=== PATIENT | male | born 1930 | race Hispanic/Latino ===

== ENCOUNTER → 2017-04-12 | Outpatient (CLI) | payer MEDICARE ==
[~2017-04-12] MED LIST: ADVAIR 100-501 EACH INH; ADVAIR 250-501 EACH INH; ALPHAGAN P5 ML OU; AMLODIPINE BESYL5 MG PO; ATROVENT 0.02%2.5 ML INH; CENTRAVITES 501 EACH; COMBIGAN 0.2% IO; COMBIGAN EYE DRO5 ML OU; COREG6.25 MG PO; DALIRESP500 MCG PO; DUONEB 0.5 MG-33 ML INH; FISH OIL OMEGA1 EACH; FLONASE INH; GEMFIBROZIL600 MG PO; IPRATROPIU0.2 MG/1 M NEB; LEVOTHYROXINE50 MCG PO; LORATADINE10 M2 PO; LORTAB 5-500 T1 EACH PO; LOSARTAN POTAS100 MG PO; LUMIGA IO; MECLIZINE HCL12.5 MG PO; METOPROLOL TART25 MG PO; MONTELUKAST SOD10 MG PO; NITROGLYCERIN0.4 MG SL; OMEPRAZOLE40 MG PO; PREDNISONE10 MG PO; PREDNISONE20 MG PO; PROAIR HFA8.5 G1; PROVENTIL 0.083%3 ML INH; RESTASIS1 EACH; RESTASIS1 EACH OU; SPIRIVA HANDIH18 MCG INH; SPIRIVA18 MCG INH; THEO-24300 MG PO; THEODUR200 MG PO; THEOPHYLLINE A200 MG PO; TIMOPTIC 0.5%1 EACH OU; Z.0.ADVAIR 100-501 E IH; Z.0.DALIRESP500 MCG PO; Z.0.GEMFIBROZIL600 M; Z.0.IPRATROPIU0.2 MG INH; Z.0.LEVOTHROID50 MCG; Z.0.LEVOTHYROXINE50 PO; Z.0.LOPRESSOR25 MG; Z.0.METOPROLOL TART2 PO; Z.0.RESTASIS1 EACH OU; Z.0.SINGULAIR10 MG PO; [UNRECOGNIZED DRUG - CODE] TOP; [UNRECOGNIZED DRUG - OTHER] TOP
--- NOTE | 2017-04-12 09:15 | Diagnostic Imaging Report ---
PROCEDURE: CT CHEST WITHOUT CONTRAST CT scan of the chest WITHOUT intravenous contrast, using standard protocol. TECHNIQUE: The chest was scanned utilizing a multidetector helical scanner from the apex to the level of the adrenal glands. No IV contrast was administered because of referring physician request. Coronal and sagittal multiplanar reformations were obtained. COMPARISON: CT chest with contrast 03/23/2014. INDICATIONS: CHEST PAIN FINDINGS: Lines/tubes: None. Lungs and Airways: Coarse reticular opacities with cystic changes in the left costophrenic sulcus and along the periphery of the right and left lower lobes, progressed relative to 03/23/2014. Left lower lobe collapse has resolved. Clustered tree in bud nodular opacities laterally within the right upper lobe seen on series 3 image 62. 5 mm groundglass nodule within the superior segment of the right lower lobe is unchanged dating to 03/23/2014. No bronchiectasis. Peribronchial thickening is again noted. Pleura: The pleural spaces are clear. Heart and mediastinum: Visualized portions of the thyroid gland are unremarkable. No ectasia or aneurysmal dilatation of the thoracic aorta. Coronary artery and aortic annular calcifications. No pericardial effusion. No axillary, hilar, or mediastinal lymphadenopathy. Soft tissues: No focal soft tissue abnormalities. Abdomen: Visualized portions of the liver, spleen, and pancreas are unremarkable. Subcentimeter bilateral renal hypoattenuating lesions, too small to further characterize. Bones: No acute osseous abnormalities. Multilevel degenerative disc changes of the thoracic spine. IMPRESSION: Mild bibasilar fibrotic changes, likely age-related.. Tree in bud nodules within the right upper lobe are nonspecific though suggestive of atypical infection. No consolidative pneumonia. Atherosclerotic vascular disease. Dictated by: Bernardo Rincon M.D. on 04/12/2017 at 9:14 Electronically approved by: Bernardo Rincon M.D. on 04/12/2017 at 9:14
== END ==
LOC: CT 07:44
PROVIDERS: ATTEND Internal Medicine Pulmonary Disease
DX: J98.4 Other disorders of lung (principal)
CPT/HCPCS: 71250

== ENCOUNTER → 2017-05-03 | Emergency (ER) | payer OTHER ==
[~2017-05-03] VITALS: Ht 167.6 cm; Wt 66.7 kg
--- OUTSIDE RECORDS SUMMARY | 2017-05-03 09:09 | XMS REPORT ---
Author Author [facility] Address Unknown Phone Unavailable Care Team Providers Care [employer] Name Role Phone DENNIS BRANDT Unavailable Unavailable Problems This patient has no known problems. Allergies, Adverse Reactions, Alerts This patient has no known allergies or adverse reactions. Medications This patient has no known medications. Results Test Description Test Time Test Comments Text Results Atomic Results Result Comments CT CHEST WO [place] [address] Patient Name: DYANA GARCIA MR #: [id number] : 1930 Age/Sex: 87/M Req #: [id number] Adm Physician: Ordered by: DENNIS BRANDT MD Report #: [id number] Location: CT Room/Bed: Procedure: [id number] CT/CT CHEST WO Exam Date: 04/12/17 Exam Time: 0820 REPORT STATUS: Signed PROCEDURE: CT CHEST WITHOUT CONTRAST CT scan of the chest WITHOUT intravenous contrast, using standard protocol. TECHNIQUE: The chest was scanned utilizing a multidetector helical scanner from the apex to the level of the adrenal glands. No IV contrast was administered because of referring physician request. Coronal and sagittal multiplanar reformations were obtained. COMPARISON: CT chest with contrast 03/23/2014. INDICATIONS: CHEST PAIN FINDINGS: Lines/ tubes: None. Lungs and Airways: Coarse reticular opacities with cystic changes in the left costophrenic sulcus and along the periphery of the right and left lower lobes, progressed relative to 03/23/2014. Left lower lobe collapse has resolved. Clustered tree in bud nodular opacities laterally within the right upper lobe seen on series 3 image 62. 5 mm groundglass nodule within the superior segment of the right lower lobe is unchanged dating to 03/23/2014. No bronchiectasis. Peribronchial thickening is again noted. Pleura: The pleural spaces are clear. Heart and mediastinum: Visualized portions of the thyroid gland are unremarkable. No ectasia or aneurysmal dilatation of the thoracic aorta. Coronary artery and aortic annular calcifications. No pericardial effusion. No axillary, hilar, or mediastinal lymphadenopathy. Soft tissues: No focal soft tissue abnormalities. Abdomen: Visualized portions of the liver, spleen, and pancreas are unremarkable. Subcentimeter bilateral renal hypoattenuating lesions, too small to further characterize. Bones: No acute osseous abnormalities. Multilevel degenerative disc changes of the thoracic spine. IMPRESSION: Mild bibasilar fibrotic changes, likely age-related.. Tree in bud nodules within the right upper lobe are nonspecific though suggestive of atypical infection. No consolidative pneumonia. Atherosclerotic vascular disease. Dictated by: Slava Hassan M.D. on at 9:14 Electronically approved by: Slava Hassan M.D. on 2017 at 9:14 Dictated By: SLAVA HASSAN MD 3 Transcribed By: BROOKLYNN on 04/12/17913 COPY TO: DENNIS BRANDT MD
--- NOTE | 2017-05-03 10:18 | Diagnostic Imaging Report ---
PROCEDURE:HIPS BILAT 3-4VWS (+/- PELVIS) INDICATION:Fall, bilateral hip pain COMPARISON:None. FINDINGS: No acute, displaced fracture or dislocation. Femoral heads project appropriately over the acetabula. Symmetric moderate joint space narrowing with subchondral cystic changes and marginal osteophytosis. Symphysis pubis and sacroiliac joints are intact. The sacrum is obscured by rectal gas and stool. CONCLUSION: No acute osseous abnormalities. 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 Dictated by: Bernardo Rincon M.D. on 05/03/2017 at 10:18 Electronically approved by: Bernardo Rincon M.D. on 05/03/2017 at 10:18
--- NOTE | 2017-05-03 10:22 | Diagnostic Imaging Report ---
PROCEDURE:X-RAY LUMBAR SPINE, TWO VIEWS COMPARISON:CT abdomen and pelvis 09/06/2016.. INDICATIONS:FALL, LOWER BACK PAIN FINDINGS: There are 5 nonrib-bearing lumbar-type vertebral bodies. There is a mild age-indeterminate anterior compression deformity of L1 which was not present on the comparison CT from August 2016.. Multilevel degenerative disc changes manifest by disc space narrowing, marginal osteophytosis, and endplate sclerosis. Bilateral facet arthropathy at L4-5 and L5-S1 With mild degenerative anterolisthesis of L4 over L5. Sacroiliac joints are intact. Sacral foramina appear intact superiorly. Inferiorly, the sacral body and coccyx are obscured by rectal gas and stool.. CONCLUSION: Mild age indeterminate anterior compression deformity of L1. Correlate for point tenderness. Multilevel degenerative disc changes and facet arthropathy of the lumbar spine Dictated by: Bernardo Rincon M.D. on 05/03/2017 at 10:21 Electronically approved by: Bernardo Rincon M.D. on 05/03/2017 at 10:21
--- NOTE | 2017-05-03 10:27 | Diagnostic Imaging Report ---
Exams: Head and cervical spine CTs without IV contrast trauma, fall History: Fall, pain Comparison studies: Head CT of 07/24/2016. Technique: Axial images were obtained from the brain and cervical spine. Coronal and sagittal images reconstructed from the axial data. Intravenous contrast: None Findings: Head CT: Scalp: No abnormalities. Bones: No fractures, blastic or lytic lesions. Extra-axial spaces: No masses. No fluid collections. Brain sulci: Mildly prominent. Ventricles: Mild compensatory dilatation. No hydrocephalus. Parenchyma: No mass, acute hemorrhage or acute cortical vascular insults. Ill-defined confluent hypodensities in the supratentorial white matter are nonspecific but most compatible with chronic small vessel ischemic changes. Small chronic lacunar insult in the left cerebellum is unchanged. Sellar/suprasellar region: No abnormalities. Craniocervical junction: The foramen magnum is patent. No Chiari one malformation. Incidental findings: Atherosclerotic calcifications in the carotid siphons and intradural vertebral arteries.. Bilateral lens replacements related to previous cataract surgery. Cervical spine CT: Fractures: None. Soft tissues: No gross abnormalities. Atlantoaxial articulation: Intact. Alignment: Normal lordosis. No scoliosis. Cervicomedullary junction: No abnormalities. The foramen magnum is patent. Vertebrae: No infection or neoplasm. Degenerative changes: Severely degenerated disc at C4-C5. Moderately degenerated disks at C5-C6 and at C6-C7. Moderate canal stenosis at C4-C5 and at C5-C6 due to disc osteophyte complexes. Multilevel advanced facet arthrosis. Mild widening of the superior degenerated left C3-C4 facet which may reflect joint effusion and changes of synovitis. Multilevel foraminal stenosis due to uncovertebral and facet arthrosis (mild on the right at C2-C3 and moderate bilaterally from C3-C4 to C6-C7). Incidental findings: Atherosclerotic calcifications in the cervical carotid bulbs.. IMPRESSION: Head CT: 1. No acute abnormalities. 2. No significant changes from the previous head CT of 07/24/2013. 3. Mild generalized volume loss with moderate chronic microvascular ischemic changes. Cervical spine CT: 1. No cervical spine fracture or acute subluxation. 2. Advanced multilevel degenerative changes as described. 3. Cannot adequately evaluate ligament, spinal cord and or vascular abnormalities on the basis of this examination. Signed by: Dr. Bernardo Mensha M.D. on 05/03/2017 10:23 AM
== END | disposition home or self-care (01) ==
LOC: ER 09:06
DX: S00.83XA Contusion of other part of head, initial encounter (principal); S32.010A Wedge compression fracture of first lumbar vertebra, initial encounter for closed fracture; W01.198A Fall on same level from slipping, tripping and stumbling with subsequent striking against other object, initial encounter; Y92.008 Other place in unspecified non-institutional (private) residence as the place of occurrence of the external cause; I10 Essential (primary) hypertension; F03.90 Unspecified dementia, unspecified severity, without behavioral disturbance, psychotic disturbance, mood disturbance, and anxiety; E03.9 Hypothyroidism, unspecified; J44.9 Chronic obstructive pulmonary disease, unspecified; I25.2 Old myocardial infarction
CPT/HCPCS: 70450; 72100; 72125; 73522; 99284

== ENCOUNTER → 2017-10-02 | Outpatient (CLI) | payer MEDICARE, OTHER ==
--- NOTE | 2017-10-02 10:21 | Diagnostic Imaging Report ---
PROCEDURE: Frontal and lateral views of the chest. COMPARISON: CT Chest 04/12/2017. INDICATIONS: OTHER DISORDERS OF LUNG FINDINGS: Lines/tubes: None. Lungs: The lungs are moderately inflated. No evidence of pneumonia or pulmonary edema. Opacities at the bilateral costophrenic angles, corresponding to fibrotic changes / scarring on prior CT on 04/12/17. Pleura: There is no pleural effusion or pneumothorax. Heart and mediastinum: The cardiomediastinal silhouette is unremarkable. Bones: No acute bony abnormality. IMPRESSION: No acute cardiopulmonary disease. Dictated by: SHANE RIVAS M.D. on 10/02/2017 at 9:35 Electronically approved by: SHANE RIVAS M.D. on 10/02/2017 at 9:35
== END ==
LOC: RAD 08:38
PROVIDERS: ATTEND Internal Medicine Pulmonary Disease
DX: J98.4 Other disorders of lung (principal)
CPT/HCPCS: 71046

== ENCOUNTER 2017-11-23 15:00 | Inpatient (IN) | payer MEDICARE, OTHER ==
[~2017-11-23] VITALS: Ht 172.7 cm; Wt 57.6 kg
[2017-11-23] MEDS ORDERED: AZITHROMYCIN 500MG/NS 250 ML 250 ML IV STA (15:21)
[2017-11-23] MEDS ORDERED: ALBUTEROL SULF 0.083% NEB SOLN 3 ML NEB NEB ONE ×2 (15:21→19:53)
[2017-11-23] MEDS ORDERED: IPRATROPIUM BROMIDE 0.02% 2.5 ML NEB NEB ONE ×2 (15:30→20:00)
[2017-11-23] MEDS ORDERED: ASPIRIN 81 MG CHEW TAB PO ONE (15:30)
[2017-11-23] MEDS ORDERED: METHYLPREDNISOLONE SOD SUCC 125 MG/2ML VIAL IV ONE (15:30)
--- NOTE | 2017-11-23 16:34 | Diagnostic Imaging Report ---
EXAMINATION: PA and lateral views of the chest. COMPARISON: None CLINICAL HISTORY: None available DISCUSSION: The lungs are well-inflated. No focal airspace consolidation or pneumothorax. Blunting of the bilateral posterior costophrenic sulci compatible with trace effusions. Atherosclerotic calcification of the thoracic aorta with otherwise normal cardiomediastinal contour. Mild prominence of the pulmonary interstitium. Probable calcified granuloma right upper lung. No acute osseous abnormality. IMPRESSION: Pulmonary venous congestion with trace bilateral pleural effusions. Signed by: Dr. Bernardo Rincon M.D. on 11/23/2017 4:31 PM
[2017-11-23 16:45] LABS: CLARITY,URINE CLEAR (CLEAR); COLOR,URINE YELLOW (YELLOW); LEUKOCYTE ESTERASE ,URINE NEGATIVE (NEGATIVE); NITRITE,URINE NEGATIVE (NEGATIVE); PROTEIN,URINE DIPSTICK 2+ (NEGATIVE)
[2017-11-23 16:46] LABS: BILIRUBIN,URINE NEGATIVE (NEGATIVE); KETONES,URINE NEGATIVE (NEGATIVE); URINE UROBILINOGEN 0.2 mg/dL (0.2 - 1)
[2017-11-23 17:05] LABS: BACTERIA,URINE RARE /HPF; EPITHELIAL CELLS,URINE RARE /LPF; RBC,URINE 0-5 /HPF (0-5); WBC,URINE (MAN) 0-5 /HPF (0-5)
[2017-11-23] MEDS: CEFTRIAXONE SOD 1 GM VIAL IV SCH (17:09)
[2017-11-23 17:16] LABS: BASOPHILS # (AUTO) 0.1 (0.0-0.1); BASOPHILS % 1.7 % (0.0-1.0); EOSINOPHILS # (AUTO) 0.8 (0.0-0.4); EOSINOPHILS % 16.9 % (0.0-6.0); HEMATOCRIT 37.8 % (38.2-49.6); HEMOGLOBIN 11.9 g/dL (14.0-18.0); LYMPHOCYTES % 21.8 % (18.0-39.1); MEAN CORPUSCULAR HEMOGLOBIN 29.9 pg (28-32); MEAN CORPUSCULAR HGB CONC 31.5 g/dL (31-35); MONOCYTES # (AUTO) 0.5 (0.2-0.8); MONOCYTES % 10.1 % (4.4-11.3); NEUTROPHILS # (AUTO) 2.3 (2.1-6.9); NEUTROPHILS % 49.3 % (38.7-80.0); PLATELET COUNT 217 x10e3/uL (140-360); RED BLOOD COUNT 3.98 x10e6/uL (4.3-5.7); RED CELL DISTRIBUTION WIDTH 12.9 % (11.7-14.4)
[2017-11-23 17:25] LABS: INR 0.98; PROTHROMBIN TIME 13.9 seconds (11.9-14.5)
[2017-11-23 17:26] LABS: PARTIAL THROMBOPLASTIN TIME 31.6 seconds (23.8-35.5)
[2017-11-23 17:33] LABS: ALBUMIN 3.3 g/dL (3.5-5.0); ALBUMIN/GLOBULIN RATIO 0.8 (0.8-2.0); ANION GAP 16.9 mmol/L (8-16); CREATININE, SERUM 2.55 mg/dL (0.72-1.25); MAGNESIUM 2.5 MG/DL (1.3-2.1)
[2017-11-23 17:36] LABS: POTASSIUM 5.9 mmol/L (3.5-5.1)
[2017-11-23 17:47] LABS: B-TYPE NATRIURETIC PEPTIDE2 139.3 pg/mL (0-100)
[2017-11-23 17:52] LABS: CREATINE KINASE MB 4.3 ng/mL (0-5.0); THYROID STIMULATING HORMONE 19.681 uIU/mL (0.350-4.940)
[2017-11-23] MEDS ORDERED: CALCIUM GLUCONATE 10% INJ 4.65 MEQ in SODIUM CHLORIDE 0.9% 50ML 50 ML IV ONE (18:00)
[2017-11-23] MEDS ORDERED: SOD POLYSTYRENE SULFONATE SUSP 15 GM/60 ML BTL PO ONE (18:15)
[2017-11-23] MEDS ORDERED: INSULIN REGULAR, HUMAN 100 UNIT/1 ML 3ML VIAL IV ONE (18:15)
[2017-11-23] MEDS ORDERED: DEXTROSE 50% SYRINGE 50 ML IV ONE (18:15)
[2017-11-23] MEDS ORDERED: FUROSEMIDE INJ 10 MG/ML 4 ML VIAL IV ONE (19:30)
[2017-11-23] MEDS: SODIUM CHLORIDE 0.9% 1000ML 1,000 ML IV SCH (21:21)
[2017-11-23 23:15] VITALS: BP 141/75
[2017-11-24] VITALS (7 sets, daily range): BP systolic 120–151; BP diastolic 67–75
[2017-11-24 00:54] LABS: CREATINE KINASE MB 4.5 ng/mL (0-5.0)
[2017-11-24] MEDS: SODIUM CHLORIDE 0.9% 1000ML 1,000 ML IV SCH (08:50)
[2017-11-24 09:01] LABS: CREATINE KINASE MB 4.7 ng/mL (0-5.0)
[2017-11-24] MEDS ORDERED: MILK OF MA2400 MG/10 PO (09:44)
[2017-11-24 10:11] LABS: BASOPHILS % 0.3 % (0.0-1.0); HEMATOCRIT 38.7 % (38.2-49.6); HEMOGLOBIN 11.7 g/dL (14.0-18.0); LYMPHOCYTES # (AUTO) 0.2 (1.0-3.2); LYMPHOCYTES % 6.6 % (18.0-39.1); MEAN CORPUSCULAR HEMOGLOBIN 29.8 pg (28-32); MEAN CORPUSCULAR HGB CONC 30.2 g/dL (31-35); MEAN CORPUSCULAR VOLUME 98.5 fL (81-99); MONOCYTES # (AUTO) 0.1 (0.2-0.8); MONOCYTES % 1.6 % (4.4-11.3); NEUTROPHILS # (AUTO) 3.3 (2.1-6.9); NEUTROPHILS % 91.2 % (38.7-80.0); PLATELET COUNT 216 x10e3/uL (140-360); RED BLOOD COUNT 3.93 x10e6/uL (4.3-5.7); RED CELL DISTRIBUTION WIDTH 13.1 % (11.7-14.4)
[2017-11-24 10:20] LABS: ANION GAP 19.5 mmol/L (8-16); CALCIUM 8.6 mg/dL (8.4-10.2); CREATININE, SERUM 2.51 mg/dL (0.72-1.25); MAGNESIUM 2.3 MG/DL (1.3-2.1); POTASSIUM 5.5 mmol/L (3.5-5.1)
[2017-11-24] MEDS ORDERED: MAGNESIUM HYDROXIDE 30 ML UDC PO PRN (10:30)
[2017-11-24] MEDS ORDERED: ACETAMINOPHEN 325 MG TAB PO PRN (10:45)
[2017-11-24] MEDS ORDERED: HYDRALAZINE HCL 20 MG/ML VIAL IV PRN (10:45)
[2017-11-24] MEDS ORDERED: ONDANSETRON HCL INJ 2 MG/ML VIAL IV PRN (10:45)
[2017-11-24] MEDS: AZITHROMYCIN 500MG/NS 250 ML 250 ML IV SCH (10:52)
[2017-11-24] MEDS: GUAIFENESIN 600MG/DEXTROMETHORPHAN 30MG TABSR PO SCH ×2 (10:52→17:34)
[2017-11-24] MEDS ORDERED: LACTULOSE SYRUP 20 GM/30 ML UDC PO NR (11:00)
[2017-11-24] MEDS: SALMETEROL/FLUTICASONE 100/50 INH SCH ×2 (11:30→20:35)
[2017-11-24] MEDS: PANTOPRAZOLE SOD 40 MG TABEC PO SCH (12:34)
[2017-11-24] MEDS ORDERED: FUROSEMIDE INJ 10 MG/ML 4 ML VIAL IV NR (13:00)
[2017-11-24 13:15] LABS: ANISOCYTOSIS SLIGHT; BURR CELLS N; PLATELET ESTIMATE ADEQUATE; PLATELET MORPHOLOGY COMMENT NORMAL; RBC MORPHOLOGY COMMENT NORMAL
[2017-11-24] MEDS ORDERED: SOD POLYSTYRENE SULFONATE SUSP 15 GM/60 ML BTL PO NR (13:15)
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
[2017-11-24] MEDS: CEFTRIAXONE SOD 1 GM VIAL IV SCH (16:04)
[2017-11-24] MEDS: GEMFIBROZIL 600 MG TAB PO SCH (17:34)
[2017-11-24] MEDS: ALBUTEROL/IPRATROPIUM 3 ML NEB NEB SCH (21:00)
[2017-11-24] MEDS: MONTELUKAST SODIUM 10 MG TAB PO SCH (21:48)
[2017-11-25] VITALS (8 sets, daily range): BP systolic 98–139; BP diastolic 56–70
[2017-11-25] MEDS: ALBUTEROL/IPRATROPIUM 3 ML NEB NEB SCH ×4 (02:00→20:05)
[2017-11-25] MEDS: LEVOTHYROXINE SODIUM 75 MCG TAB PO SCH (05:51)
[2017-11-25 06:15] LABS: BASOPHILS # (AUTO) 0.1 (0.0-0.1); BASOPHILS % 0.9 % (0.0-1.0); EOSINOPHILS # (AUTO) 0.3 (0.0-0.4); EOSINOPHILS % 4.2 % (0.0-6.0); HEMATOCRIT 34.2 % (38.2-49.6); HEMOGLOBIN 10.8 g/dL (14.0-18.0); LYMPHOCYTES # (AUTO) 1.8 (1.0-3.2); LYMPHOCYTES % 24.7 % (18.0-39.1); MEAN CORPUSCULAR HEMOGLOBIN 30.2 pg (28-32); MEAN CORPUSCULAR HGB CONC 31.6 g/dL (31-35); MEAN CORPUSCULAR VOLUME 95.5 fL (81-99); MONOCYTES # (AUTO) 0.8 (0.2-0.8); MONOCYTES % 10.5 % (4.4-11.3); NEUTROPHILS # (AUTO) 4.4 (2.1-6.9); NEUTROPHILS % 59.4 % (38.7-80.0); PLATELET COUNT 195 x10e3/uL (140-360); RED BLOOD COUNT 3.58 x10e6/uL (4.3-5.7)
[2017-11-25 06:36] LABS: ANION GAP 14.6 mmol/L (8-16); CALCIUM 8.4 mg/dL (8.4-10.2); CREATININE, SERUM 2.6 mg/dL (0.72-1.25); POTASSIUM 4.6 mmol/L (3.5-5.1)
[2017-11-25 06:58] LABS: FERRITIN 174.37 ng/mL (21.81-274.66); FREE T4 (FREE THYROXINE) 0.7 ng/dL (0.9-1.8)
[2017-11-25] MEDS: SALMETEROL/FLUTICASONE 100/50 INH SCH ×2 (08:05→20:05)
[2017-11-25] MEDS ORDERED: FUROSEMIDE INJ 10 MG/ML 2 ML VIAL IV NR ×2 (08:45→10:15)
[2017-11-25] MEDS: PANTOPRAZOLE SOD 40 MG TABEC PO SCH (08:51)
[2017-11-25] MEDS: GEMFIBROZIL 600 MG TAB PO SCH ×2 (08:51→17:08)
[2017-11-25] MEDS: GUAIFENESIN 600MG/DEXTROMETHORPHAN 30MG TABSR PO SCH ×2 (08:51→17:08)
[2017-11-25] MEDS: AZITHROMYCIN 500MG/NS 250 ML 250 ML IV SCH (10:17)
[2017-11-25] MEDS: CEFTRIAXONE SOD 1 GM VIAL IV SCH (15:30)
[2017-11-25] MEDS: MONTELUKAST SODIUM 10 MG TAB PO SCH (21:33)
[2017-11-26] VITALS (8 sets, daily range): BP systolic 105–131; BP diastolic 56–69
[2017-11-26] MEDS: ALBUTEROL/IPRATROPIUM 3 ML NEB NEB SCH ×4 (01:35→19:00)
[2017-11-26 05:10] LABS: BASOPHILS # (AUTO) 0.1 (0.0-0.1); BASOPHILS % 1.3 % (0.0-1.0); EOSINOPHILS # (AUTO) 0.7 (0.0-0.4); EOSINOPHILS % 9.5 % (0.0-6.0); HEMATOCRIT 34.6 % (38.2-49.6); HEMOGLOBIN 10.8 g/dL (14.0-18.0); LYMPHOCYTES # (AUTO) 1.5 (1.0-3.2); LYMPHOCYTES % 22.1 % (18.0-39.1); MEAN CORPUSCULAR HEMOGLOBIN 29.9 pg (28-32); MEAN CORPUSCULAR HGB CONC 31.2 g/dL (31-35); MEAN CORPUSCULAR VOLUME 95.8 fL (81-99); MONOCYTES # (AUTO) 0.9 (0.2-0.8); MONOCYTES % 12.4 % (4.4-11.3); NEUTROPHILS # (AUTO) 3.8 (2.1-6.9); NEUTROPHILS % 54.6 % (38.7-80.0); PLATELET COUNT 185 x10e3/uL (140-360); RED BLOOD COUNT 3.61 x10e6/uL (4.3-5.7)
[2017-11-26] MEDS: LEVOTHYROXINE SODIUM 75 MCG TAB PO SCH (05:32)
[2017-11-26 05:37] LABS: ANION GAP 8.3 mmol/L (8-16); CALCIUM 8.6 mg/dL (8.4-10.2); CREATININE, SERUM 2.52 mg/dL (0.72-1.25); MAGNESIUM 1.8 MG/DL (1.3-2.1); POTASSIUM 4.3 mmol/L (3.5-5.1)
[2017-11-26] MEDS: SALMETEROL/FLUTICASONE 100/50 INH SCH ×2 (07:00→19:00)
[2017-11-26] MEDS: GEMFIBROZIL 600 MG TAB PO SCH ×2 (08:41→16:38)
[2017-11-26] MEDS: GUAIFENESIN 600MG/DEXTROMETHORPHAN 30MG TABSR PO SCH ×2 (08:41→16:38)
[2017-11-26] MEDS: METHYLPREDNISOLONE SOD SUCC 40 MG/ML VIAL IV SCH ×2 (08:41→20:45)
[2017-11-26] MEDS: PANTOPRAZOLE SOD 40 MG TABEC PO SCH (08:41)
[2017-11-26] MEDS: AZITHROMYCIN 500MG/NS 250 ML 250 ML IV SCH (10:15)
[2017-11-26] MEDS: CEFTRIAXONE SOD 1 GM VIAL IV SCH (15:35)
[2017-11-26] MEDS: MONTELUKAST SODIUM 10 MG TAB PO SCH (21:28)
[2017-11-27 00:40] VITALS: BP 119/70
[2017-11-27] MEDS: ALBUTEROL/IPRATROPIUM 3 ML NEB NEB SCH ×3 (02:00→13:00)
[2017-11-27 04:00] VITALS: BP 105/56
[2017-11-27] MEDS: LEVOTHYROXINE SODIUM 75 MCG TAB PO SCH (05:23)
[2017-11-27 05:52] LABS: BASOPHILS % 0.5 % (0.0-1.0); EOSINOPHILS % 0.4 % (0.0-6.0); HEMATOCRIT 33.9 % (38.2-49.6); HEMOGLOBIN 10.7 g/dL (14.0-18.0); LYMPHOCYTES # (AUTO) 1.9 (1.0-3.2); LYMPHOCYTES % 25.9 % (18.0-39.1); MEAN CORPUSCULAR HEMOGLOBIN 29.8 pg (28-32); MEAN CORPUSCULAR HGB CONC 31.6 g/dL (31-35); MEAN CORPUSCULAR VOLUME 94.4 fL (81-99); MONOCYTES # (AUTO) 0.9 (0.2-0.8); MONOCYTES % 12.1 % (4.4-11.3); NEUTROPHILS # (AUTO) 4.5 (2.1-6.9); NEUTROPHILS % 60.4 % (38.7-80.0); PLATELET COUNT 201 x10e3/uL (140-360); RED BLOOD COUNT 3.59 x10e6/uL (4.3-5.7); RED CELL DISTRIBUTION WIDTH 12.5 % (11.7-14.4)
[2017-11-27 06:28] LABS: CALCIUM 7.1 mg/dL (8.4-10.2); CREATININE, SERUM 2.29 mg/dL (0.72-1.25); MAGNESIUM 1.7 MG/DL (1.3-2.1)
[2017-11-27] MEDS ORDERED: CALCIUM GLUCONATE 10% INJ 9.3 MEQ in SODIUM CHLORIDE 0.9% 100 ML 100 ML IV ONE (06:45)
[2017-11-27] MEDS ORDERED: MUCINEX DM ER1 EACH PO (06:50)
[2017-11-27] MEDS ORDERED: SYNTHROID75 MCG PO (06:50)
[2017-11-27] MEDS ORDERED: PREDNISONE PO (06:50)
[2017-11-27] MEDS ORDERED: CEFTIN PO (06:50)
[2017-11-27] MEDS: SALMETEROL/FLUTICASONE 100/50 INH SCH (07:00)
--- NOTE | 2017-11-27 07:03 | Diagnostic Imaging Report ---
PROCEDURE: CHEST SINGLE (PORTABLE) COMPARISON: 11/23/2017. INDICATIONS: SOB FINDINGS: The lungs remain reasonably well inflated. No focal airspace consolidation. Blunting of the bilateral costophrenic sulci is unchanged. Probable calcified granuloma right upper lobe. Mild perihilar prominence of the pulmonary interstitium. Skin folds project over the right upper hemithorax. Stable cardiomediastinal contour with atherosclerotic calcification of the thoracic aorta. Normal heart size. No acute osseous abnormality. CONCLUSION: Pulmonary venous congestion and trace bilateral pleural effusions, similar to that noted on 11/23/2017 accounting for differences in technique. Dictated by: Bernardo Rincon M.D. on 11/27/2017 at 7:11 Electronically approved by: Bernardo Rincon M.D. on 11/27/2017 at 7:11
[2017-11-27 07:31] VITALS: BP 116/64
[2017-11-27] MEDS: GUAIFENESIN 600MG/DEXTROMETHORPHAN 30MG TABSR PO SCH (08:48)
[2017-11-27] MEDS: PANTOPRAZOLE SOD 40 MG TABEC PO SCH (08:48)
[2017-11-27] MEDS: GEMFIBROZIL 600 MG TAB PO SCH (08:48)
[2017-11-27] MEDS: METHYLPREDNISOLONE SOD SUCC 40 MG/ML VIAL IV SCH (08:48)
[2017-11-27] MEDS: AZITHROMYCIN 500MG/NS 250 ML 250 ML IV SCH (10:30)
[2017-11-27 11:30] VITALS: BP 116/64
[2017-11-27 11:45] VITALS: BP 112/59
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
== END 2017-11-27 14:47 | disposition home health service (06) | DRG 291 ==
LOC: ER 15:00 → ERHOLD 19:30 → MED/SURG 22:50
PROVIDERS: ADMIT Internal Medicine; ATTEND Internal Medicine
DX: I13.0 Hypertensive heart and chronic kidney disease with heart failure and stage 1 through stage 4 chronic kidney disease, or unspecified chronic kidney disease (principal); I50.23 Acute on chronic systolic (congestive) heart failure; J44.0 Chronic obstructive pulmonary disease with (acute) lower respiratory infection; N17.9 Acute kidney failure, unspecified; N18.4 Chronic kidney disease, stage 4 (severe); J44.1 Chronic obstructive pulmonary disease with (acute) exacerbation; J20.9 Acute bronchitis, unspecified; E03.9 Hypothyroidism, unspecified; E78.5 Hyperlipidemia, unspecified; K29.70 Gastritis, unspecified, without bleeding; N18.9 Chronic kidney disease, unspecified; E87.5 Hyperkalemia; E83.42 Hypomagnesemia; I25.10 Atherosclerotic heart disease of native coronary artery without angina pectoris; K44.9 Diaphragmatic hernia without obstruction or gangrene; Z83.3 Family history of diabetes mellitus; Z82.3 Family history of stroke; Z80.9 Family history of malignant neoplasm, unspecified; D63.1 Anemia in chronic kidney disease; G51.0 Bell's palsy; E83.51 Hypocalcemia; Z87.891 Personal history of nicotine dependence
CPT/HCPCS: 36415; 71045; 71046; 80048; 80053; 81001; 82550; 82553; 82728; 82948; 83036; 83540; 83605; 83735; 83880; 84439; 84443; 84466; 84484; 85025; 85610; 85730; 87040; 87086; 87205; 87400; 93005; 93306; 94640; 94644; 97139; 99284; J0456; J0610; J0696; J1940; J2920; J2930; J7030; J7799

== ENCOUNTER → 2018-03-16 | Outpatient (CLI) | payer MEDICARE, OTHER ==
[~2018-03-16] MED LIST changes: +CEFTIN PO; +MILK OF MA2400 MG/10 PO; +MUCINEX DM ER1 EACH PO; +PREDNISONE PO; +SYNTHROID75 MCG PO
[2018-03-16 10:02] LABS: ALBUMIN 3.4 g/dL (3.5-5.0); ANION GAP 13.9 mmol/L (8-16); CALCIUM 8.5 mg/dL (8.4-10.2); CREATININE, SERUM 2.15 mg/dL (0.72-1.25); MAGNESIUM 2.6 MG/DL (1.3-2.1); PHOSPHORUS 3.7 MG/DL (2.3-4.7)
[2018-03-16 10:27] LABS: POTASSIUM 5.9 mmol/L (3.5-5.1)
== END ==
LOC: LAB 09:15
PROVIDERS: ATTEND Internal Medicine
DX: M05.79 Rheumatoid arthritis with rheumatoid factor of multiple sites without organ or systems involvement (principal); N18.9 Chronic kidney disease, unspecified; M54.2 Cervicalgia; M81.0 Age-related osteoporosis without current pathological fracture
CPT/HCPCS: 80053; 83735; 84100